=== PATIENT | male | born 1985 | race Caucasian/White ===

== ENCOUNTER → 2016-08-25 | Outpatient (CLI) | payer BC ==
[~2016-08-25] MED LIST: ALPR0.5T PO; ALPR1TAB2 PO; ARIP5TAB5 PO; CEPH-507 PO; CYCL10TA45 PO; DIVA500T7 PO; HYDR-3881 PO; LAMO200T14 PO; LISI1TAB6 PO; LISI1TAB8 PO; NF-LISIN40; NF-TORA10 PO; OMEP20CA12 PO; SERT50TA PO; SUCR1TAB29 PO; TRAZ-28 PO
== END ==
LOC: LAB 08:57 → EDSTATUS 09:42 → LAB 10:53
PROVIDERS: ATTEND Nurse Practitioner Family
DX: Z77.011 Contact with and (suspected) exposure to lead (principal)
CPT/HCPCS: 36415; 83655

== ENCOUNTER 2016-09-04 08:15 | Outpatient (RCR) | payer BC | END 2016-09-18 12:00 | disposition home or self-care (01) | LOC: PT 08:15 | PROVIDERS: ATTEND Family Medicine | DX: M54.5 Low back pain (principal); M53.3 Sacrococcygeal disorders, not elsewhere classified ==

== ENCOUNTER → 2016-11-05 | Outpatient (CLI) | payer BC ==
[2016-11-05 17:53] VITALS: BP 121/80
== END ==
LOC: MHUC 17:31
PROVIDERS: ATTEND Nurse Practitioner
DX: J11.1 Influenza due to unidentified influenza virus with other respiratory manifestations (principal)
CPT/HCPCS: 99213

== ENCOUNTER 2017-01-11 19:04 | Emergency (ER) | payer BC ==
[~2017-01-11] VITALS: Ht 182.9 cm; Wt 115.9 kg
--- OUTSIDE RECORDS SUMMARY | 2017-01-11 19:08 | XMS REPORT | Continuity of Care Document ---
Author Author [facility] Address Unknown Phone Unavailable Support Name Relationship Address Phone RICHARD PARIS MD Caregiver [address] [place] [address] AMINA PHILLIP Next Of Kin [address] [place] [address] Insurance Providers Payer Name Policy Number Subscriber Name Relationship [facility] [id number] Anamaria Phillip 20 Self / Same As Patient Advance Directives Directive Response Recorded Date/Time Advanced Directives No 05/26/16 3:38pm Problems Active Problems Medical Problem Onset Date Status Cervical myofascial strain ~12/22/2015 Acute Chest pain, non-cardiac Unknown Acute Concussion Unknown Resolved Lumbar spine strain Unknown Resolved Puncture wound - injury 01/15/2013 Medications Current Home Medications Medication Dose Units Route Directions Days/Qty Instructions Start Date Lisinopril/Hydrochlorothiazide 1 Each 1 Each ORAL Daily 08/25/14 Divalproex Sodium 500 Mg 500 Mg ORAL Daily 12/22/15 Sertraline Hcl (Zoloft) 50 Mg 50 Mg ORAL Daily 12/22/15 Sucralfate 1 Gm 1 Gm ORAL 30 Min Qac 120 05/26/16 Past Home Medications Medication Directions Ordered Status Lisinopril (Zestril) 40 Mg Tablet, Daily 01/15/13 Discontinued Cephalexin 500 Mg Capsule, 500 Mg Oral Three Times A Day 01/15/13 Discontinued Hydrocodone Bit/Acetaminophen 1 Ea Tablet, 1 Ea Oral Every 8HRS 01/15/13 Discontinued Lisinopril/Hydrochlorothiazide 1 Each Tablet, 1 Each Oral Daily 08/25/14 Discontinued Trazodone Hcl 50 Mg Tablet, 50 Mg Oral Bedtime 08/25/14 Discontinued Aripiprazole 5 Mg Tablet, 5 Mg Oral Daily 08/25/14 Discontinued Alprazolam 1 Mg Tablet, 1 Mg Oral Twice A Day 08/25/14 Discontinued Alprazolam 0.5 Mg Tablet, 0.5 Mg Oral Twice A Day 08/25/14 Discontinued Lamotrigine 200 Mg Tablet, 200 Mg Oral Daily 08/25/14 Discontinued Ketorolac Tromethamine 10 Mg Tab, 10 Mg Oral Every 6 Hours as needed for Pain 08/25/14 Discontinued Cyclobenzaprine Hcl 10 Mg Tablet, 10 Mg Oral Three Times A Day as needed for Pain 08/25/14 Discontinued Omeprazole 20 Mg Capsule.dr, 20 Mg Oral Daily 12/22/15 Discontinued Cyclobenzaprine Hcl 10 Mg Tablet, 10 Mg Oral Three Times A Day as needed for Spasms 12/22/15 Discontinued Social History Query Response Start Date Stop Date Smoking Status Never smoker Hospital Discharge Instructions No hospital discharge instructions. Plan of Care Prescriptions See Medication Section Functional Status No functional status results. Allergies, Adverse Reactions, Alerts Allergen Type Severity Reaction Status Last Updated Penicillin Allergy Severe Active 05/26/16 Immunizations No immunization records. Vital Signs No known vital signs results. Results No known relevant diagnostic tests, laboratory data and/or discharge summary. Procedures No known history of procedures. Encounters Encounter Location Arrival/Admit Date Discharge/Depart Date Attending Provider Discharged [facility] 09/04/16 8:15am 09/18/16 12:00pm RICHARD PARIS MD
[2017-01-11] MEDS ORDERED: ED- CIPROFLOXACIN 0.3% OPHTHALMIC DROPS (CILOXAN) 2.5 ML BTL OS ONE (19:40)
[2017-01-11 19:50] VITALS: BP 135/73
== END 2017-01-11 19:50 | disposition home or self-care (01) ==
LOC: ED 19:05
DX: H10.32 Unspecified acute conjunctivitis, left eye (principal)
CPT/HCPCS: 99283